=== PATIENT | female | born 1960 | race Caucasian/White ===

== ENCOUNTER 2021-04-01 20:34 | Emergency (ER) | payer SELFPAY ==
[2021-04-01] MEDS ORDERED: Calcium Gluconate 10% 1 GM/10 ML SDV IV ONE (20:35)
[2021-04-01] MEDS ORDERED: EPINEPHrine 1:10,000 1 MG/10 ML Syringe IV ONE (20:35)
[2021-04-01] MEDS ORDERED: Sodium Bicarbonate 8.4% 50 MEQ/50 ML Syringe IV ONE (20:35)
[2021-04-01 21:39] LABS: ANION GAP 32.8 mEq/L (7-13); CHLORIDE,CL 101 mmol/L (98-107); SODIUM,NA 138 mmol/L (136-145)
[2021-04-01 21:45] LABS: CORONAVIRUS COVID-19 NAA NEGATIVE (NEGATIVE)
[2021-04-01] MEDS ORDERED: EPINEPHrine 1:10,000 1 MG/10 ML Syringe ONE ×2 (22:09→22:13)
[2021-04-01] MEDS ORDERED: Calcium Gluconate 10% 1 GM/10 ML SDV ONE (22:09)
[2021-04-01] MEDS ORDERED: Sodium Bicarbonate 8.4% 50 MEQ/50 ML Syringe ONE (22:10)
--- NOTE | 2021-04-02 01:45 | EDM.PDOC ---
ED HPI GENERAL MEDICAL PROBLEM - General Chief Complaint: CPR in Progress Stated Complaint: AMBULANCE - CODE BLUE Time Seen by Provider: 04/01/21 20:35 Source of Information: Reports: EMS, Family - History of Present Illness INITIAL COMMENTS - FREE TEXT/NARRATIVE: ED via [facility] with CPR in progress, initiated on scene by daughter. Patient report to have had sniffles past 2 days, fatigued today had headache. Daughter stated patient had sat down in recliner and daughter ent to change load of laundry and when came back upstairs paint face and body wihite and hands blue. Patient still sitting upright in recliner. Family deny and significant medical hx. Only take excedrin and benadryl. Has no primary care and not been to dr for year. Smoker. No prior [place] hx. No recent falls. - Related Data Allergies Allergy/AdvReac Type Severity Reaction Status Date / Time No Known Allergies Allergy Verified 03/11/15 09:00 ED ROS GENERAL - Review of Systems Review Of Systems: Comprehensive ROS is negative, except as noted in HPI. ED EXAM, CPR - Physical Exam Exam: See Below Limited By: No Limitations General Appearance: Severe Distress (CPR in progress), Obese, Other Eye Exam: Bilateral Eye: Other (pupils fixed) Nose: Nasal Drainage (small amount emesis in nares) Head: Atraumatic Respiratory Chest: Other (intubated, assist bag valve. bilateral breath sounds fainter on left) Cardiovascular: CPR In Progress GI/Abdominal Exam: Distended (mild) Extremities: Pallor Skin Exam: Cool, Pallor Course - Orders/Labs/Meds Orders: Active Orders 24 hr Category Date Time Status Blood Glucose Check, Bedside [RC] ONETIME Care 04/01/21 20:42 Active Labs: Laboratory Tests 04/01/21 04/01/21 04/01/21 Range/Units 20:50 20:50 20:50 WBC 12.6 H (5.0-10.0) 10^3/uL RBC 3.97 L (4.2-5.4) 10^6/uL Hgb 12.7 (12.0-16.0) g/dL Hct 41.1 (37.0-47.0) % MCV 103.5 H (80-100) fL MCH 32.0 (27.0-34.0) pg MCHC 30.9 L (33.0-35.0) g/dL Plt Count 137 L (150-450) 10^3/uL Neut % (Auto) 36.2 L (42.2-75.2) % Lymph % (Auto) 54.7 H (20.5-50.1) % [place] % (Auto) 6.9 (2-8) % Eos % (Auto) 2.0 (1.0-3.0) % Baso % (Auto) 0.2 (0.0-1.0) % Sodium 138 (136-145) mmol/L Potassium 4.8 (3.5-5.1) mmol/L Chloride 101 (98-107) mmol/L Carbon Dioxide 9 L (21-32) mmol/L Anion Gap 32.8 H (7-13) mEq/L BUN 17 (7-18) mg/dL Creatinine 1.40 H (0.55-1.02) mg/dL Est Cr Clr Drug Dosing TNP Estimated GFR (MDRD) 38 BUN/Creatinine Ratio 12.1 (No establ ref range) Glucose 447 H* (70-99) mg/dL POC Glucose (70-99) mg/dL Hemoglobin A1c 6.0 H (<5.7) % Calcium 9.3 (8.5-10.1) mg/dL Total Bilirubin 0.1 L (0.2-1.0) mg/dL AST 834 H (15-37) U/L ALT 946 H (14-59) U/L Alkaline Phosphatase 113 (46-116) U/L Total Protein 6.6 (6.4-8.2) g/dL Albumin 2.6 L (3.4-5.0) g/dL Globulin 4.0 Albumin/Globulin Ratio 0.65 Ethyl Alcohol (0) mg/dL Influenza Type A RNA (NEGATIVE) Influenza Type B RNA (NEGATIVE) SARS-CoV-2 RNA (TOY) (NEGATIVE) 04/01/21 04/01/21 04/01/21 Range/Units 20:50 20:50 21:00 WBC (5.0-10.0) 10^3/uL RBC (4.2-5.4) 10^6/uL Hgb (12.0-16.0) g/dL Hct (37.0-47.0) % MCV (80-100) fL MCH (27.0-34.0) pg MCHC (33.0-35.0) g/dL Plt Count (150-450) 10^3/uL Neut % (Auto) (42.2-75.2) % Lymph % (Auto) (20.5-50.1) % [place] % (Auto) (2-8) % Eos % (Auto) (1.0-3.0) % Baso % (Auto) (0.0-1.0) % Sodium (136-145) mmol/L Potassium (3.5-5.1) mmol/L Chloride (98-107) mmol/L Carbon Dioxide (21-32) mmol/L Anion Gap (7-13) mEq/L BUN (7-18) mg/dL Creatinine (0.55-1.02) mg/dL Est Cr Clr Drug Dosing Estimated GFR (MDRD) BUN/Creatinine Ratio (No establ ref range) Glucose (70-99) mg/dL POC Glucose 427 H* (70-99) mg/dL Hemoglobin A1c (<5.7) % Calcium (8.5-10.1) mg/dL Total Bilirubin (0.2-1.0) mg/dL AST (15-37) U/L ALT (14-59) U/L Alkaline Phosphatase (46-116) U/L Total Protein (6.4-8.2) g/dL Albumin (3.4-5.0) g/dL Globulin Albumin/Globulin Ratio Ethyl Alcohol < 3 (0) mg/dL Influenza Type A RNA Negative (NEGATIVE) Influenza Type B RNA Negative (NEGATIVE) SARS-CoV-2 RNA (TOY) Negative (NEGATIVE) Meds: Medications Discontinued Medications Generic Name Dose Route Start Last Admin Trade Name Freq PRN Reason Stop Dose Admin Calcium Gluconate Confirm 04/01/21 22:09 Calcium Gluconate 10% 1 Gm/10 Ml Sdv Administered 04/01/21 22:10 Dose 1 gm .ROUTE .STK-MED ONE Epinephrine HCl Confirm 04/01/21 22:09 Epinephrine 1:10,000 1 Mg/10 Ml Syringe Administered 04/01/21 22:10 Dose 4 mg .ROUTE .STK-MED ONE Epinephrine HCl Confirm 04/01/21 22:13 Epinephrine 1:10,000 1 Mg/10 Ml Syringe Administered 04/01/21 22:14 Dose 2 mg .ROUTE .STK-MED ONE Sodium Bicarbonate Confirm 04/01/21 22:10 Sodium Bicarbonate 8.4% 50 Meq/50 Ml Syringe Administered 04/01/21 22:11 Dose 100 meq .ROUTE .STK-MED ONE - Re-Assessments/Exams Free Text/Narrative Re-Assessment/Exam: Multiple rounds medications and CPR, No return of pulse, HR or spontaneous respiration. ECG asystole. Discussed with spouse and daughter carmel. Patient has been down at least 45 minutes. Prognosis is terminal at this point. Family is agreeable to stop CPR. Dr Henson notified. family here. may release body to [facility]. Departure - Departure Time of Disposition: 20:52 Disposition: 20 Preliminary Cause of *Q: Cardiac Arrest Clinical Impression: Cardiac arrest - Discharge Information *PRESCRIPTION DRUG MONITORING PROGRAM REVIEWED*: No *COPY OF PRESCRIPTION DRUG MONITORING REPORT IN PATIENT SUSAN: No Referrals: PCP,None [Primary Care Provider] - - My Orders Last 24 Hours: My Active Orders 04/01/21 20:42 Blood Glucose Check, Bedside [RC] ONETIME - Assessment/Plan Last 24 Hours: My Active Orders 04/01/21 20:42 Blood Glucose Check, Bedside [RC] ONETIME
== END 2021-04-01 22:54 | disposition expired ==
LOC: DL.ED 20:34
DX: I46.9 Cardiac arrest, cause unspecified (principal); Z20.822 Contact with and (suspected) exposure to COVID-19
CPT/HCPCS: 0240U; 36415; 80053; 80307; 82947; 83036; 85025; 92950; 99285; J0171; J0610